=== PATIENT | female | born 1945 | race Caucasian/White ===

== ENCOUNTER → 2023-09-18 09:39 | Outpatient (REF) | payer MEDICARE, OTHER, SELFPAY ==
[2023-09-18 12:06] LABS: % Basophils 1.1 % (0-2); % Immature Granulocytes 0.2 % (0-0.5); % Lymphocytes 23.7 % (20.5-51.1); % Monocytes 7.2 % (1.7-9.3); % Neutrophils 65.8 % (42.2-75.2); Absolute Basophils 0.1 10^3/uL (0-0.2); Absolute Eosinophils 0.1 10^3/uL (0-0.7); Absolute Lymphocytes 1.3 10^3/uL (1.2-3.4); Absolute Monocytes 0.4 10^3/uL (0.1-0.6); Absolute Neutrophils 3.6 10^3/uL (1.4-6.5); Hematocrit 40.6 % (37.0-47.0); Hemoglobin 13.6 g/dL (12.0-16.0); Mean Corp Hgb Conc. 33.5 g/dL (33.0-37.0); Mean Corpuscular Hgb 32.2 pg (27.0-31.0); Mean Platelet Volume 12.1 fL (7.4-10.4); Nucleated Red Blood Cells % 0 %; Platelet Count 170 10^3/uL (130-400); Red Blood Cell Count 4.23 10^6/uL (4.20-5.40); Red Cell Dist. Width 12.7 % (11.5-14.5); White Blood Cell Count 5.5 10^3/uL (4.8-10.8)
[2023-09-18 12:17] LABS: ALT (SGPT) 19 U/L (0-35); AST (SGOT) 27 U/L (14-36); Alkaline Phosphatase 72 U/L (38-126); Blood Urea Nitrogen 16 mg/dl (7-17); Calcium 11.1 mg/dl (8.4-10.2); Carbon Dioxide 27 mmol/L (22-30); Chloride 103 mmol/L (98-107); Glucose 104 mg/dl (70-99); Potassium 4.2 mmol/L (3.5-5.1); Sodium 141 mmol/L (135-145); Total Bilirubin 1.1 mg/dl (0.2-1.3); Total Protein 7.7 g/dl (6.3-8.2); eGFR > 60.00
== END ==
LOC: HWLAB 09:39
PROVIDERS: ATTENDING PHYSICIAN Internal Medicine
DX: R10.12 Left upper quadrant pain (principal); R19.5 Other fecal abnormalities
CPT/HCPCS: 36415; 80053; 85025

== ENCOUNTER → 2023-09-21 10:36 | Outpatient (REF) | payer MEDICARE, OTHER, SELFPAY | LOC: HWRAD 10:36 | PROVIDERS: ATTENDING PHYSICIAN Internal Medicine | DX: R10.12 Left upper quadrant pain (principal); R19.5 Other fecal abnormalities | CPT/HCPCS: 74177; Q9967 ==

== ENCOUNTER → 2023-09-24 08:39 | Outpatient (REF) | payer MEDICARE, OTHER, SELFPAY ==
[2023-09-24 13:43] LABS: Calcium 9.9 mg/dl (8.4-10.2)
[2023-09-25 14:43] LABS: Intact PTH 31.6 pg/ml (13.6-85.8)
== END ==
LOC: HWLAB 08:39
PROVIDERS: ATTENDING PHYSICIAN Internal Medicine
DX: E83.52 Hypercalcemia (principal)
CPT/HCPCS: 36415; 83970

== ENCOUNTER → 2024-01-07 08:47 | Outpatient (REF) | payer MEDICARE, OTHER, SELFPAY | LOC: HWRAD 08:47 | PROVIDERS: ATTENDING PHYSICIAN Internal Medicine | DX: M81.0 Age-related osteoporosis without current pathological fracture (principal) | CPT/HCPCS: 77080 ==

== ENCOUNTER → 2024-01-15 07:07 | Outpatient (REF) | payer MEDICARE, OTHER, SELFPAY ==
[2024-01-15 08:49] LABS: % Basophils 1.7 % (0-2); % Eosinophils 7.1 % (0-6); % Lymphocytes 30.8 % (20.5-51.1); % Monocytes 9.2 % (1.7-9.3); % Neutrophils 51.2 % (42.2-75.2); Absolute Basophils 0.1 10^3/uL (0-0.2); Absolute Eosinophils 0.3 10^3/uL (0-0.7); Absolute Lymphocytes 1.3 10^3/uL (1.2-3.4); Absolute Monocytes 0.4 10^3/uL (0.1-0.6); Absolute Neutrophils 2.2 10^3/uL (1.4-6.5); Hemoglobin 13.5 g/dL (12.0-16.0); Mean Corp Hgb Conc. 33.8 g/dL (33.0-37.0); Mean Corpuscular Hgb 32.4 pg (27.0-31.0); Mean Corpuscular Volume 95.9 fL (81.0-99.0); Mean Platelet Volume 12.4 fL (7.4-10.4); Nucleated Red Blood Cells % 0 %; Platelet Count 181 10^3/uL (130-400); Red Blood Cell Count 4.17 10^6/uL (4.20-5.40); Red Cell Dist. Width 12.7 % (11.5-14.5); White Blood Cell Count 4.2 10^3/uL (4.8-10.8)
[2024-01-15 09:07] LABS: ALT (SGPT) 16 U/L (0-35); AST (SGOT) 22 U/L (14-36); Albumin 4.7 g/dl (3.5-5.0); Alkaline Phosphatase 67 U/L (38-126); Blood Urea Nitrogen 16 mg/dl (7-17); Carbon Dioxide 26 mmol/L (22-30); Chloride 103 mmol/L (98-107); Glucose 98 mg/dl (70-99); Sodium 143 mmol/L (135-145); Total Bilirubin 1.1 mg/dl (0.2-1.3); Total Cholesterol 227 mg/dl (50-199); Total Protein 7.1 g/dl (6.3-8.2); Triglyceride 80 mg/dl (10-149); Very Low Density Lipoprotein 16 mg/dl (0-30); eGFR > 60.00
[2024-01-15 09:16] LABS: HDL Cholesterol 111 mg/dl; LDL Cholesterol, Calculated 100 mg/dl
[2024-01-15 09:33] LABS: TSH Reflex To Free T4 1.55 uIU/ml (0.47-4.68)
[2024-01-15 09:38] LABS: Glycohemoglobin (HgbA1c) 4.9 % (4.0-5.6)
== END ==
LOC: HWLAB 07:07
PROVIDERS: ATTENDING PHYSICIAN Internal Medicine
DX: E78.5 Hyperlipidemia, unspecified (principal); R73.09 Other abnormal glucose; R00.0 Tachycardia, unspecified; K92.1 Melena
CPT/HCPCS: 36415; 80053; 80061; 83036; 84443; 85025

== ENCOUNTER → 2024-01-25 09:00 | Outpatient (REF) | payer MEDICARE, OTHER, SELFPAY | LOC: HWRCS 09:00 | PROVIDERS: ATTENDING PHYSICIAN Internal Medicine | DX: I34.0 Nonrheumatic mitral (valve) insufficiency (principal); I07.1 Rheumatic tricuspid insufficiency; I77.810 Thoracic aortic ectasia | CPT/HCPCS: 93306 ==

== ENCOUNTER → 2024-02-05 11:57 | Outpatient (REF) | payer MEDICARE, OTHER, SELFPAY | LOC: HWWDC 11:57 | PROVIDERS: ATTENDING PHYSICIAN Internal Medicine | DX: Z12.31 Encounter for screening mammogram for malignant neoplasm of breast (principal) | CPT/HCPCS: 77063; 77067 ==

== ENCOUNTER → 2024-03-20 06:29 | Day surgery (SDC) | payer MEDICARE, OTHER, SELFPAY | LOC: GI 06:29 | PROVIDERS: ATTENDING PHYSICIAN Internal Medicine Gastroenterology; FAMILY PHYSICIAN Internal Medicine | DX: Z12.11 Encounter for screening for malignant neoplasm of colon (principal); D12.0 Benign neoplasm of cecum; K57.30 Diverticulosis of large intestine without perforation or abscess without bleeding; Q43.8 Other specified congenital malformations of intestine; K64.8 Other hemorrhoids; K64.4 Residual hemorrhoidal skin tags | CPT/HCPCS: 45385; 88305 ==

== ENCOUNTER → 2025-02-05 09:32 | Outpatient (REF) | payer MEDICARE, OTHER, SELFPAY | LOC: HWWDC 09:32 | PROVIDERS: ATTENDING PHYSICIAN Internal Medicine | DX: Z12.31 Encounter for screening mammogram for malignant neoplasm of breast (principal) | CPT/HCPCS: 77063; 77067 ==

== ENCOUNTER → 2025-02-06 07:11 | Outpatient (REF) | payer MEDICARE, OTHER, SELFPAY ==
[2025-02-06 09:57] LABS: Hematocrit 40.1 % (37.0-47.0); Hemoglobin 13.4 g/dL (12.0-16.0); Mean Corp Hgb Conc. 33.4 g/dL (33.0-37.0); Mean Corpuscular Volume 96.4 fL (81.0-99.0); Nucleated Red Blood Cells % 0 %; Platelet Count 178 10^3/uL (130-400); Red Cell Dist. Width 12.9 % (11.5-14.5)
[2025-02-06 10:05] LABS: ALT (SGPT) 15 U/L (0-35); AST (SGOT) 21 U/L (14-36); Albumin 4.7 g/dl (3.5-5.0); Alkaline Phosphatase 63 U/L (38-126); Blood Urea Nitrogen 18 mg/dl (7-17); Calcium 10.0 mg/dl (8.4-10.2); Carbon Dioxide 29 mmol/L (22-30); Chloride 107 mmol/L (98-107); Glucose 99 mg/dl (70-99); Potassium 4.8 mmol/L (3.5-5.1); Sodium 142 mmol/L (135-145); Total Protein 7.3 g/dl (6.3-8.2); Very Low Density Lipoprotein 16 mg/dl (0-30); eGFR > 60.00
[2025-02-06 10:15] LABS: HDL Cholesterol 126 mg/dl; LDL Cholesterol, Calculated 111 mg/dl
== END ==
LOC: HWLAB 07:11
PROVIDERS: ATTENDING PHYSICIAN Internal Medicine
DX: R79.89 Other specified abnormal findings of blood chemistry (principal); E78.5 Hyperlipidemia, unspecified; Z12.39 Encounter for other screening for malignant neoplasm of breast
CPT/HCPCS: 36415; 80053; 80061; 85025